=== PATIENT | male | born 1985 | race Caucasian/White ===

== ENCOUNTER 2016-05-13 13:13 | Emergency (ER) | payer OTHER ==
[~2016-05-13] VITALS: Ht 167.6 cm; Wt 63.5 kg
--- NOTE | 2016-05-13 13:13 | NUR ---
Patient BIBA at this time.
--- NOTE | 2016-05-13 13:40 | NUR ---
Dr. Marsh evaluating patient.
--- NOTE | 2016-05-13 13:43 | NUR ---
Patient taken to bed 03 via gurney per EMS.
[2016-05-13 13:44] VITALS: BP 147/61
[2016-05-13] MEDS ORDERED: XANAX1 MG PO (13:54)
[2016-05-13] MEDS ORDERED: RESTORIL15 MG PO (13:54)
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
[2016-05-13 15:50] VITALS: BP 128/71
--- NOTE | 2016-05-13 15:50 | NUR ---
Patient discharged with v/s stable. Written and verbal after care instructions given and explained. Patient verbalized understanding. Ambulatory with steady gait. All questions addressed prior to discharge. Advised to follow up with PMD.
== END 2016-05-13 15:50 | disposition home or self-care (01) ==
LOC: MED 13:13
DX: S00.03XA Contusion of scalp, initial encounter (principal); V19.9XXA Pedal cyclist (driver) (passenger) injured in unspecified traffic accident, initial encounter; Y93.55 Activity, bike riding; Y92.89 Other specified places as the place of occurrence of the external cause; Y99.8 Other external cause status